=== PATIENT | female | born 1935 | race Caucasian/White ===

== ENCOUNTER → 2016-02-21 | Outpatient (REF) | payer MEDICARE ==
[2016-02-21 09:45] LABS: BASOPHILS % (AUTO) 1 % (0-2); EOSINOPHILS # (AUTO) 0.2 10^3uL; EOSINOPHILS % (AUTO) 3 % (0-4); LYMPHOCYTES # (AUTO) 1.6 X10^3; MEAN CORPUSCULAR HEMOGLOBIN 28.5 PG (26.0-34.0); MEAN CORPUSCULAR HGB CONC 31.8 g/dL (31.0-37.0); MEAN CORPUSCULAR VOLUME 90 FL (80-100); MEAN PLATELET VOLUME 11.7 FL (6.0-9.5); MONOCYTES # (AUTO) 0.6 X10^3; MONOCYTES % (AUTO) 9 % (3-11); NEUTROPHILS # (AUTO) 3.9 X10^3; NEUTROPHILS % (AUTO) 62 % (51-67); PLATELET COUNT 208 10^3uL (150-450); WHITE BLOOD COUNT 6.37 10^3uL (4.0-11.0)
[2016-02-21 10:10] LABS: ALBUMIN 4.3 g/dL (3.4-5.0); ANION GAP 15.5 MEQ/L (3-15); CALCULATED IONIZED CALCIUM 4.1 mg/dL (3.8-4.6); MAGNESIUM* 2.1 mg/dL (1.6-2.3); TOTAL PROTEIN 7.4 g/dL (6.4-8.5)
== END ==
LOC: LAB 08:34
PROVIDERS: ATTEND Family Medicine
DX: E13.65 Other specified diabetes mellitus with hyperglycemia (principal); R79.89 Other specified abnormal findings of blood chemistry; D50.8 Other iron deficiency anemias; E83.42 Hypomagnesemia; E03.4 Atrophy of thyroid (acquired); D51.0 Vitamin B12 deficiency anemia due to intrinsic factor deficiency
CPT/HCPCS: 80053; 82306; 82607; 83036; 83735; 84436; 84443; 85025

== ENCOUNTER → 2016-02-23 | Outpatient (REF) | payer MEDICARE ==
[2016-02-23 15:56] LABS: BILIRUBIN,URINE Negative (Negative); CLARITY,URINE Cloudy; COLOR,URINE Yellow; GLUCOSE, URINE (UA) Negative (Negative); LEUKOCYTE ESTERASE ,URINE 2+ (Negative); UROBILINOGEN,URINE 0.2 mg/dL (0.2-1.0)
[2016-02-23 16:07] LABS: URINE CENTRIFUGED VOLUME 12 mL
== END ==
LOC: LAB 15:07
PROVIDERS: ATTEND Family Medicine
DX: N39.0 Urinary tract infection, site not specified (principal)
CPT/HCPCS: 81003; 81015; 87077; 87088; 87186

== ENCOUNTER → 2016-03-13 | Outpatient (REF) | payer MEDICARE ==
[2016-03-13 16:12] LABS: BILIRUBIN,URINE Negative (Negative); CLARITY,URINE Clear; COLOR,URINE Yellow; GLUCOSE, URINE (UA) Negative (Negative); LEUKOCYTE ESTERASE ,URINE Negative (Negative); UROBILINOGEN,URINE 0.2 mg/dL (0.2-1.0)
[2016-03-13 17:49] LABS: URINE CENTRIFUGED VOLUME 12 mL
[2016-03-13 17:51] LABS: RBC,URINE 0-2 /HPF
== END ==
LOC: LAB 15:09
PROVIDERS: ATTEND Family Medicine
DX: N39.0 Urinary tract infection, site not specified (principal)
CPT/HCPCS: 81003; 81015